=== PATIENT | female | born 1950 | race Asian ===

== ENCOUNTER 2016-04-16 11:34 | Emergency (ER) | payer OTHER ==
[~2016-04-16] VITALS: Ht 157.5 cm; Wt 59.0 kg
[2016-04-16 11:35] VITALS: BP 140/108; PULSE 140; RESP 19; TEMP 98.2; O2SAT 99
--- NOTE | 2016-04-16 11:35 | NUR ---
BROUGHT IMMEDIATELY BACK TO BED #1 AND TRIAGED. CHUY CHARGE NURSE AND DR SOUZA CALLED TO BEDSIDE. REPORT GIVEN TO CHUY AND DR SOUZA
--- NOTE | 2016-04-16 11:45 | NUR ---
Patient presented to ER for difficulty finding words and right hand weakness since 1100. is at bedside. 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
--- NOTE | 2016-04-16 11:46 | NUR ---
ER Dr. Jacobs at bedside examining patient.
--- NOTE | 2016-04-16 12:05 | NUR ---
Off unit for CT.
[2016-04-16] MEDS ORDERED: ASPIRIN 81 MG TABLET(ECOTRIN) PO ONE (12:15)
[2016-04-16] MEDS ORDERED: AMLO5TAB4 PO (12:15)
[2016-04-16 12:17] LABS: BASOPHILS % (AUTO) 0.3 % (0.0-2.0); EOSINOPHILS # (AUTO) 0.2 K/uL (0.0-0.4); EOSINOPHILS % (AUTO) 2.9 % (0.0-4.0); HEMOGLOBIN 13.8 g/dL (12.0-16.0); LYMPHOCYTES # (AUTO) 1.5 K/uL (1.0-5.5); LYMPHOCYTES % (AUTO) 25.8 % (20.5-51.5); MEAN CORPUSCULAR HEMOGLOBIN 30 pg (27-31); MEAN CORPUSCULAR HGB CONC 33 % (32-36); MEAN CORPUSCULAR VOLUME 91 fL (79.0-98.0); MONOCYTES # (AUTO) 0.5 K/uL (0.0-1.0); MONOCYTES % (AUTO) 9.1 % (1.7-9.3); NEUTROPHILS # (AUTO) 3.5 K/uL (1.8-7.7); NEUTROPHILS % (AUTO) 61.9 % (40.0-70.0); PLATELET COUNT (AUTO) 216 K/uL (130-430); RED BLOOD CELL COUNT(AUTO) 4.63 MIL/uL (4.2-6.2); RED CELL DISTRIBUTION WIDTH 13.1 % (9.0-15.0); WHITE BLOOD COUNT (AUTO) 5.7 K/uL (4.8-10.8)
--- NOTE | 2016-04-16 12:20 | NUR ---
Back from CT. Patient remains with unchanged condition.
[2016-04-16 12:21] LABS: CALCIUM 8.8 mg/dL (8.4-11.0); CREATININE 0.7 mg/dL (0.55-1.30); POTASSIUM 3.5 mmol/L (3.5-5.1)
[2016-04-16 12:25] LABS: PROTHROMBIN TIME 10.9 SECS (9.5-12.5)
[2016-04-16 12:26] LABS: ALBUMIN 3.9 g/dL (3.4-4.8); TOTAL BILIRUBIN 0.4 mg/dL (0.0-1.0); TOTAL PROTEIN, SERUM 8.1 g/dL (6.4-8.3)
--- NOTE | 2016-04-16 12:28 | NUR ---
Dr. Iglesias neurologist at [facility] is accepting patient as a code stroke after speaking with Dr. Jacobs. Dr. Iglesias states Do Not Give Aspirin as he feels that this patient will go for TPA.
--- NOTE | 2016-04-16 12:44 | NUR ---
Report called to Pb LOPEZ at [facility]. Patient will be acepted. ALS transport is enrotue.
[2016-04-16 12:50] VITALS: BP 137/62; PULSE 110; RESP 24; TEMP 97; O2SAT 98
--- NOTE | 2016-04-16 12:50 | NUR ---
Report given to RIA for patient going to [facility]. Patient condition unchanged, still with expressive dysphasia.
== END 2016-04-16 12:50 | disposition short-term general hospital (02) ==
LOC: SED 11:34
DX: I63.9 Cerebral infarction, unspecified (principal); R47.01 Aphasia; I10 Essential (primary) hypertension; Z98.51 Tubal ligation status
CPT/HCPCS: 36415; 70450-TC; 71010; 80053; 82550-TC; 84484; 85025; 85610-TC; 85730-TC; 93005; 99285